=== PATIENT | female | born 1985 | race Caucasian/White ===

== ENCOUNTER 2020-07-31 21:10 | Outpatient (CLI) | payer BC ==
[~2020-07-31] VITALS: Ht 162.6 cm; Wt 79.0 kg
[~2020-07-31 21:10] MED LIST: BCP PO; DOCO200C3 PO; IBUP-1222 PO; OXYC-302 PO
[2020-07-31 21:47] VITALS: BP 114/72
[2020-07-31] MEDS ORDERED: PROMETHAZINE 25 MG/ML, 1ML ONE (23:54)
[2020-07-31] MEDS ORDERED: MEPERIDINE/PF 50 MG/ML ONE (23:54)
[2020-07-31] MEDS ORDERED: MEPERIDINE/PF 25MG/0.5ML IM PRN (23:55)
[2020-07-31] MEDS ORDERED: PROMETHAZINE 25 MG/ML, 1ML IM ONE (23:55)
== END 2020-08-01 01:45 | disposition home or self-care (01) ==
LOC: LDOP 21:10
PROVIDERS: ATTEND Student in an Organized Health Care Education/Training Program
DX: O62.0 Primary inadequate contractions (principal); O99.413 Diseases of the circulatory system complicating pregnancy, third trimester; I48.91 Unspecified atrial fibrillation; O99.353 Diseases of the nervous system complicating pregnancy, third trimester; G43.909 Migraine, unspecified, not intractable, without status migrainosus; Z3A.39 39 weeks gestation of pregnancy
CPT/HCPCS: 59025; 96372; J2175; J2550

== ENCOUNTER 2020-08-03 20:29 | Inpatient (IN) | payer BC ==
[~2020-08-03] VITALS: Ht 162.6 cm; Wt 80.0 kg
[2020-08-03] MEDS ORDERED: D5%-LACTATED RINGERS 1,000 ML IV SCH (20:43)
[2020-08-03] MEDS ORDERED: OXYTOCIN 30U/ 0.9% NaCL 500ML 500 ML IV ONE (20:43)
[2020-08-03] MEDS: LACTATED RINGERS 1,000 ML IV SCH ×3 (20:45→22:12)
[2020-08-03 20:47] VITALS: BP 119/79
[2020-08-03] MEDS ORDERED: NEWBORN KIT ONE (20:55)
[2020-08-03] MEDS ORDERED: TERBUTALINE 1 MG/ML, 1ML ONE (20:56)
[2020-08-03] MEDS ORDERED: OXYTOCIN 30U/ 0.9% NaCL 500ML 500 ML ONE (20:56)
[2020-08-03] MEDS ORDERED: METOCLOPRAMIDE 5 MG/ML, 2ML IVPush PRN (21:00)
[2020-08-03] MEDS ORDERED: FENTANYL PF 100 MCG/2ML IV PRN (21:00)
[2020-08-03] MEDS ORDERED: TERBUTALINE 1 MG/ML, 1ML IVPush PRN (21:00)
[2020-08-03] MEDS ORDERED: SODIUM CITRATE/CITRIC ACID 30 ML UDC PO PRN (21:00)
[2020-08-03] MEDS ORDERED: TERBUTALINE 1 MG/ML, 1ML SQ PRN (21:00)
[2020-08-03] MEDS ORDERED: ONDANSETRON 2MG/ML, 2ML IVPush PRN (21:00)
[2020-08-03] MEDS ORDERED: FENTANYL PF 100 MCG/2ML IVPush PRN (21:00)
[2020-08-03] MEDS ORDERED: PREN1TAB79 PO (21:10)
[2020-08-03] MEDS ORDERED: MAGN500T PO (21:10)
[2020-08-03 21:24] LABS: BASOPHILS % (AUTO) 1 % (0-1); EOSINOPHILS % (AUTO) 2 % (1-7); LYMPHOCYTES % (AUTO) 22 % (22-44); MEAN CORPUSCULAR HEMOGLOBIN 30.7 pg (27.0-34.8); MEAN CORPUSCULAR HGB CONC 33.6 g/dL (32.4-35.8); MONOCYTES % (AUTO) 6 % (2-9); NEUTROPHILS % (AUTO) 69 % (42-75); PLATELET COUNT 344 x10^3/uL (130-400); RED BLOOD COUNT 4.18 x10^6/uL (3.82-5.3); RED CELL DISTRIBUTION WIDTH 14.2 % (9.6-15.2)
[2020-08-03] MEDS ORDERED: CALCIUM CARBONATE 500 MG TAB.CHEW PO PRN (21:30)
[2020-08-03] MEDS ORDERED: LACTATED RINGERS 1,000 ML IVBOLUS PRN ×3 (21:30→22:30)
[2020-08-03 21:31] LABS: MD NO
[2020-08-03] MEDS ORDERED: FENTANYL/BUPIV./NS/PF 250 ML EPIDCONT ONE (21:41)
[2020-08-03] MEDS ORDERED: FENTANYL/BUPIV./NS/PF 250 ML EPIDCONT SCH ×2 (22:10→22:12)
[2020-08-03] MEDS ORDERED: NALOXONE 0.4 MG/ML, 1ML IVPush PRN (22:30)
[2020-08-03] MEDS ORDERED: EPHEDRINE 50 MG/ML, 1ML IVPush PRN ×2 (22:30)
[2020-08-03] MEDS ORDERED: ONDANSETRON 2MG/ML, 2ML ONE (22:35)
[2020-08-03] MEDS ORDERED: FLU VACC QS2020-21(6MOS UP)/PF 60MCG/0.5 ML SYR IM-VACC ONE (23:45)
[2020-08-04] MEDS ORDERED: CALCIUM CARBONATE 500 MG TAB.CHEW ONE (01:42)
[2020-08-04] MEDS: LACTATED RINGERS 1,000 ML IV SCH ×3 (04:00→06:12)
[2020-08-04] MEDS ORDERED: OXYTOCIN 30U/ 0.9% NaCL 500ML 500 ML ONE (09:22)
[2020-08-04] MEDS: OXYTOCIN 30U/ 0.9% NaCL 500ML 500 ML IV SCH ×2 (10:00→20:30)
[2020-08-04] MEDS ORDERED: IBUPROFEN 600 MG TABLET ONE (10:20)
[2020-08-04] MEDS ORDERED: OXYcodone/APAP 5/325MG TABLET ONE (10:20)
[2020-08-04] MEDS: OXYcodone/APAP 5/325MG TABLET PO PRN ×3 (10:27→18:34)
[2020-08-04] MEDS: IBUPROFEN 600 MG TABLET PO PRN ×2 (10:27→18:34)
[2020-08-04] MEDS ORDERED: MISOPROSTOL 200 MCG TABLET PR PRN (10:30)
[2020-08-04] MEDS ORDERED: ACETAMINOPHEN 325 MG TABLET PO PRN (10:30)
[2020-08-04] MEDS ORDERED: SIMETHICONE 80 MG CHEW TAB PO PRN (10:30)
[2020-08-04 10:50] VITALS: BP 92/55
[2020-08-04 15:30] VITALS: BP 98/63
[2020-08-04 16:43] LABS: BASOPHILS % (AUTO) 1 % (0-1); EOSINOPHILS % (AUTO) 0 % (1-7); LYMPHOCYTES % (AUTO) 13 % (22-44); MEAN CORPUSCULAR HEMOGLOBIN 30.8 pg (27.0-34.8); MEAN CORPUSCULAR HGB CONC 33.5 g/dL (32.4-35.8); MEAN PLATELET VOLUME 7.9 fL (7.4-10.4); MONOCYTES % (AUTO) 7 % (2-9); NEUTROPHILS % (AUTO) 80 % (42-75); PLATELET COUNT 302 x10^3/uL (130-400)
[2020-08-04 17:20] LABS: MD SCAN
[2020-08-04 20:00] VITALS: BP 105/69
[2020-08-05] MEDS: IBUPROFEN 600 MG TABLET PO PRN ×4 (00:44→20:23)
[2020-08-05] MEDS: OXYcodone/APAP 5/325MG TABLET PO PRN ×4 (00:44→16:55)
[2020-08-05 00:45] VITALS: BP 104/65
[2020-08-05 04:12] VITALS: BP 100/67
[2020-08-05] MEDS: OXYTOCIN 30U/ 0.9% NaCL 500ML 500 ML IV SCH ×2 (06:15→16:30)
[2020-08-05 07:30] VITALS: BP 106/73
[2020-08-05] MEDS: PRENATAL VIT/IRON/FA 1 EACH TABLET PO SCH (07:39)
[2020-08-05] MEDS: DOCUSATE 100 MG CAPSULE PO PRN ×2 (07:40→20:23)
[2020-08-05] MEDS ORDERED: IBUP-1223 PO (09:24)
[2020-08-05] MEDS ORDERED: OXYC10TA6 PO (09:29)
[2020-08-05] MEDS ORDERED: FLU VACC QS2020-21(6MOS UP)/PF 60MCG/0.5 ML SYR IM-VACC ONE (16:00)
[2020-08-05 20:49] VITALS: BP 109/73
[2020-08-06] MEDS: IBUPROFEN 600 MG TABLET PO PRN ×3 (02:26→15:43)
[2020-08-06] MEDS: OXYTOCIN 30U/ 0.9% NaCL 500ML 500 ML IV SCH ×2 (02:30→12:30)
[2020-08-06 07:36] VITALS: BP 106/72
[2020-08-06] MEDS: PRENATAL VIT/IRON/FA 1 EACH TABLET PO SCH (09:40)
[2020-08-06] MEDS: DOCUSATE 100 MG CAPSULE PO PRN (09:40)
[2020-08-06] MEDS: OXYcodone/APAP 5/325MG TABLET PO PRN ×2 (09:40→17:40)
== END 2020-08-06 18:30 | disposition home or self-care (01) | DRG 806 ==
LOC: LDOP 20:29 → LDIP 20:44 → INTOOBSV 20:44 → OBSVTOIN 20:44 → 2NW 08-04 10:48
PROVIDERS: ADMIT Student in an Organized Health Care Education/Training Program; ATTEND Student in an Organized Health Care Education/Training Program
PROC: 10E0XZZ Delivery of Products of Conception, External Approach (ICD-10-PCS; principal; 2020-08-04)
PROC: 0KQM0ZZ Repair Perineum Muscle, Open Approach (ICD-10-PCS; 2020-08-04)
PROC: 10907ZC Drainage of Amniotic Fluid, Therapeutic from Products of Conception, Via Natural or Artificial Opening (ICD-10-PCS; 2020-08-04)
PROC: 3E033VJ Introduction of Other Hormone into Peripheral Vein, Percutaneous Approach (ICD-10-PCS; 2020-08-04)
PROC: 3E0R3BZ Introduction of Anesthetic Agent into Spinal Canal, Percutaneous Approach (ICD-10-PCS; 2020-08-04)
PROC: 00HU33Z Insertion of Infusion Device into Spinal Canal, Percutaneous Approach (ICD-10-PCS; 2020-08-04)
PROC: 3E02340 Introduction of Influenza Vaccine into Muscle, Percutaneous Approach (ICD-10-PCS; 2020-08-05)
DX: O99.42 Diseases of the circulatory system complicating childbirth (principal); O99.354 Diseases of the nervous system complicating childbirth; Z37.0 Single live birth; G43.909 Migraine, unspecified, not intractable, without status migrainosus; Z3A.39 39 weeks gestation of pregnancy; Z23 Encounter for immunization; O34.211 Maternal care for low transverse scar from previous cesarean delivery; I48.91 Unspecified atrial fibrillation; O70.1 Second degree perineal laceration during delivery
CPT/HCPCS: 36415; 85025; 86592; 86850; 86900; 90471; 90686; 96361; 96374; G0378; J2405; J2590; J3010; J7120